=== PATIENT | female | born 1995 | race Caucasian/White ===

== ENCOUNTER 2019-11-30 20:04 | Inpatient (IN) | payer OTHER ==
[2019-11-30] MEDS ORDERED: SODIUM CHLORIDE 1,000 ML IV STA (20:19)
--- NOTE | 2019-11-30 20:24 | PDOC ---
Rapid Medical Evaluation Chief Complaint: Vaginal Bleeding Time Seen by Provider: 11/30/19 20:07 Medical Evaluation: 11/30/19 20:21 I performed a brief in-person evaluation of this patient. Pt is a 24 y/o female with vaginal bleeding in . She states she was told she is 9w gestation. Pt is . She states the bleeding started just prior to arrival. She is complaining of cramping in the abdomen. Pertinent physical exam findings: speaking in full sentences, nontoxic, no respiratory distress I have ordered the following: labs, transvaginal US, IV, 1L NS bolus Patient to proceed to ED for further evaluation. Discharge Disposition - Diagnosis Vaginal bleeding during - Referrals - Patient Instructions - Post Discharge Activity
[2019-11-30 21:02] LABS: BASO % 0.7 % (0-2.0); EOS % 2.7 % (0-4.5); HEMATOCRIT 35.8 % (32.4-45.2); LYMPH % 23.5 % (8-40); MCH 30.5 pg (25.7-33.7); MCHC 33.6 g/dl (32.0-36.0); MEAN CELL VOLUME 90.8 fl (80-96); MEAN PLT VOLUME 10.4 fl (7.5-11.1); MONO % 7.4 % (3.8-10.2); NEUT % 65.7 % (42.8-82.8); PLATELET COUNT 232 K/MM3 (134-434); RBC 3.94 M/mm3 (3.60-5.2); WHITE BLOOD COUNT 11.8 K/mm3 (4.0-10.0)
--- NOTE | 2019-11-30 21:18 | PDOC ---
History of Present Illness - General Chief Complaint: Vaginal Bleeding Stated Complaint: 9WKS - BLEEDING Time Seen by Provider: 11/30/19 20:07 Past History - Medical History Allergies/Adverse Reactions: Allergies Allergy/AdvReac Type Severity Reaction Status Date / Time No Known Allergies Allergy Verified 11/30/19 20:52 Home Medications: Ambulatory Orders NK [No Known Home Medication] 11/30/19 - Psycho-Social/Smoking History Smoking History: Never smoked - Substance Abuse Hx (Audit-C & DAST Scrn) How often the patient has a drink containing alcohol: Never Score: In Men: 4 or > Positive; In Women: 3 or > Positive: 0 Screen Result (Pos requires Nsg. Audit-10AR): Negative In the last yr the pt used illegal drug/Rx for NonMed reason: No Score: Yes response is considered Positive: 0 Screen Result (Positive result requires Nsg. DAST-10): Negative *Physical Exam - Vital Signs Last Vital Signs Temp Pulse Resp BP Pulse Ox 98.3 F 94 H 17 113/70 99 11/30/19 20:19 11/30/19 20:19 11/30/19 20:19 11/30/19 20:19 11/30/19 20:19 ED Treatment Course - LABORATORY CBC & Chemistry Diagram: 11/30/19 20:51 11/30/19 20:51 - ADDITIONAL ORDERS Additional order review: 11/30/19 20:51 RBC 3.94 MCV 90.8 MCHC 33.6 RDW 13.0 MPV 10.4 Neutrophils % 65.7 Lymphocytes % 23.5 Monocytes % 7.4 Eosinophils % 2.7 Basophils % 0.7 Medical Decision Making - Medical Decision Making 11/30/19 21:12 HPI: 24yo F no PMH 9 weeks by US presents from home c/o vaginal bleeding and abdominal pain since 1700 this PM. 1700 started light vaginal bleeding without clots or tissue, then 1800 began L-sided lower abdominal intermittent cramping and suprapubic burning type pain worse with urination. Endorses nausea and 2x emesis this PM, c/w "morning sickness". Denies vaginal discharge, trauma, complications, lightheadedness, syncope, headache, chest pain, SOB, back pain, flank pain, urinary urgency/frequency, numbness/tingling, weakness, sick contacts, URI-like sx. 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 HENT: Negative for sore throat, rhinorrhea, congestion. Eyes: Negative for visual disturbance. Respiratory: Negative for shortness of breath, cough, and wheezing. Cardiovascular: Negative for chest pain, palpitations, and leg swelling. Gastrointestinal: Positive for abdominal pain, nausea, vomiting. Negative for blood in stool, constipation, diarrhea. Genitourinary: Positive for vaginal bleeding, dysuria. Negative for flank pain, and hematuria. Musculoskeletal: Negative for myalgias, back pain, and neck pain. Skin: Negative for rash. Neurological: Negative for light-headedness, dizziness, vertigo, syncope, weakness, numbness and headaches. Psychiatric/Behavioral: Negative for behavioral problems and confusion. PE: Gen: Alert, NAD, comfortable-appearing, tearing up HEENT: PERRL, EOMI, MMM, NCAT. No conjunctival pallor. Sclera are non-icteric. CV: Regular rate and rhythm. No murmurs, rubs, or gallops. PULM: No resp distress. CTAB, no wheezes, rales, or rhonchi. ABD: soft, NT/ND, no rebound tenderness or guarding, no CVA tenderness. PELVIC: External genitalia unremarkable. Moderate amount of blood pooling in vault. No discharge seen with speculum exam. Cervix visualized and is open with active slow bleeding and small <1cm clot without any tissue. Bimanual exam without cervical motion tenderness, adnexal tenderness, or any masses appreciated. BACK: No TTP of c/t/l-spine. No step-offs or deformities. MSK: No bony deformities. 2+ pulses in all extremities. NEURO: AAOx3. PERRL. No gross CN deficits. Strength and sensation grossly intact throughout. Normal gait. EXTREMITIES: No cyanosis. No clubbing. No edema. No calf tenderness. PSYCH: Normal mood and thought pattern. SKIN: Warm and dry. Normal capillary refill. No rashes. No jaundice. MDM: 24yo F no PMH 9 weeks by US presents from home with vaginal bleed ing and abdominal pain since 1700 this PM. Hemodynamically stable, afebrile, benign abdomen. Ddx: UTI, spontaneous , implantation bleeding, anembryonic , heterotopic , ectopic , molar pregnacy, round ligament pain, ovarian torsion, Rh sensitization, ovarian cyst/cyst rupture, metabolic derangement, anemia -CBC,CMP,HCG,T&S,Coags -IVF -Pain management -Dispo: pending workup and reassessment 11/30/19 22:37 TVUS reviewed: IUP w/estimated GA 7w6d. No FHR compatible with demse. Labs reviewed. UA c/w UTI -Keflex -Consulted Dr Alcazar: will call back 11/30/19 22:[address] Alcazar. Admitted under Dr Alcazar for suction D&C tomorrow. Discharge - Discharge Information Problems reviewed: Yes Clinical Impression/Diagnosis: Vaginal bleeding during , Missed with demise before 20 completed weeks of gestation, UTI (urinary tract infection) Condition: Stable - Admission Yes - Follow up/Referral - Patient Discharge Instructions - Post Discharge Activity
[2019-11-30 21:58] LABS: BILIRUBIN,TOTAL 0.2 mg/dL (0.2-1); BLOOD UREA NITROGEN 7.6 mg/dL (7-18); CALCIUM 9.2 mg/dL (8.5-10.1); CREATININE 0.6 mg/dL (0.55-1.3); TOT PROT 7.3 g/dl (6.4-8.2)
[2019-11-30 22:00] LABS: EPI CELLS 24 /uL (0-25.1); HYALINE CASTS 0 /uL (0-3.1); URINE APPEARANCE CLOUDY; URINE BACTERIA 346 /uL (0-1359); URINE BILIRUBIN NEGATIVE (NEGATIVE); URINE COLOR YELLOW; URINE GLUCOSE (UA) NEGATIVE (NEGATIVE); URINE KETONE NEGATIVE (NEGATIVE); URINE LEUK ESTERASE 1+ (NEGATIVE); URINE NITRITE NEGATIVE (NEGATIVE); URINE PROTEIN NEGATIVE (NEGATIVE); URINE RBC 12 /uL (0-23.9); URINE UROBILINOGEN 0.2 mg/dL (0.2-1.0); URINE WBC 20 /uL (0-25.8)
[2019-11-30] MEDS ORDERED: CEPHALEXIN MONOHYDRATE 500 MG CAPSULE (UD) PO ONE (22:24)
[2019-11-30] MEDS ORDERED: CEPHALEXIN MONOHYDRATE 500 MG CAPSULE (UD) ONE (22:32)
[2019-11-30 22:35] LABS: INR 0.95 (0.83-1.09); PROTHROMBIN TIME (PATIENT) 11.2 SEC (9.7-13.0)
[2019-11-30 22:37] LABS: ACTIVATED PTT 30.3 SECONDS (25.2-36.5)
[2019-11-30] MEDS ORDERED: SODIUM CHLORIDE 0.9% 500 ML INFUS.BAG IV ONE (23:01)
[2019-11-30] MEDS ORDERED: SODIUM CHLORIDE 1,000 ML IV SCH (23:15)
[2019-11-30] MEDS ORDERED: ACETAMINOPHEN 1000 MG/100 ML VIAL (NON FORMULARY) IVPB ONE (23:33)
[2019-11-30] MEDS ORDERED: ACETAMINOPHEN INJECTION 100 ML IVPB ONE (23:38)
--- NOTE | 2019-11-30 23:50 | PDOC ---
Documentation entered by Joan Matute SCRIBE, acting as scribe for Rosita Pandya MD. Rosita Pandya MD: This documentation has been prepared by the Juju gagnon Adrianna, SCRIBE, under my direction and personally reviewed by me in its entirety. I confirm that the documentation accurately reflects all work, treatment, procedures, and medical decision making performed by me. Attending Attestation - Resident Resident Name: Pat Francois - ED Attending Attestation I have performed the following: I have examined & evaluated the patient, The case was reviewed & discussed with the resident, I agree w/resident's findings & plan, Exceptions are as noted - HPI HPI: 24 y.o female, ~9 weeks gestation by US with no PMH, presents with vaginal bleeding for a few hours. Patient complains of light vaginal bleeding, with LLQ abdominal cramping and suprapubic burning with urination. She endorses associated nausea and 1 episodes of NBNB vomit. Denies vaginal discharge, complications with , or any other complaints. denies any prior h/o ectopic. has had two us this . follows with dr Alcazar. blood type A positive. 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 Alcazar 11/30/19 23:46 - Physicial Exam PE: 11/30/19 23:48 awake alert lungs clear bilat heart rrr no mrg abd soft mild suprapubic ttp. nd ext wwp. exam performed by DR Francois. skin warm and dry. - Medical Decision Making 11/30/19 23:49 24 yo at 9 weeks by dates, with vaginal bleeding. diff threatened, missed or incomlete ab. plan us, labs bhcg. ivf given. us with missed ab 7 week sized fetus, no FHR paged dr Alcazar, plan for D & C in am. pt npo, started on maintenance fluids. ekg NSR 82 bpm. Discharge - Discharge Information Problems reviewed: Yes Clinical Impression/Diagnosis: Vaginal bleeding during , Missed with demise before 20 completed weeks of gestation Condition: Stable - Follow up/Referral - Patient Discharge Instructions - Post Discharge Activity
[2019-12-01 02:53] VITALS: BMI 25.9
[2019-12-01] MEDS ORDERED: MIDAZOLAM HCL 2 MG/2 ML SINGLE DOSE VIAL ONE ×2 (08:24)
[2019-12-01] MEDS ORDERED: PROPOFOL 20 ML ONE (08:24)
[2019-12-01] MEDS ORDERED: KETOROLAC TROMETHAMINE 30 MG/1 ML VIAL ONE (09:27)
[2019-12-01] MEDS ORDERED: ONDANSETRON 4 MG/2 ML VIAL IVPUSH PRN (09:48)
--- NOTE | 2019-12-01 09:48 | OP ---
Operative Note - Note: Operative Date: 12/01/19 Pre-Operative Diagnosis: Missed Operation: Suction D&C Findings: Product of conception Post-Operative Diagnosis: Same as Pre-op Surgeon: Rakel Alcazar Anesthesia: General Specimens Removed: Product of conception Estimated Blood Loss (mls): 10
[2019-12-01] MEDS ORDERED: LACTATED RINGERS SOLUTION 1,000 ML IV SCH (10:00)
--- NOTE | 2019-12-01 10:16 | HP ---
Admitting History and Physical - Admission Chief Complaint: Vaginal spotting in History of Present Illness: 24 yo , presents c/o vaginal spotting in associated with abdominal cramps. She had a sonogram done that shows evidence of an intrauterine with absent heart rate. A suction D&C was scheduled. History Source: Patient Limitations to Obtaining History: No Limitations - Past Medical History ...: Yes ...: 1 ...Para: 0 - Past Surgical History Past Surgical History: Yes: None - Smoking History Smoking history: Never smoked - Alcohol/Substance Use Hx Alcohol Use: No History of Substance Use: reports: None - Social History Usual Living Arrangement: Yes: With Significant Other History of Recent Travel: No Home Medications - Allergies Allergies/Adverse Reactions: Allergies Allergy/AdvReac Type Severity Reaction Status Date / Time No Known Allergies Allergy Verified 11/30/19 20:52 - Home Medications Home Medications: Ambulatory Orders NK [No Known Home Medication] 11/30/19 Family Medical History Family History: Unremarkable Review of Systems - Review of Systems Constitutional: denies: Fever Eyes: reports: No Symptoms HENT: reports: No Symptoms Neck: reports: No Symptoms Cardiovascular: reports: No Symptoms Respiratory: reports: No Symptoms Gastrointestinal: reports: No Symptoms Genitourinary: reports: Pain, Vaginal Bleeding Breasts: reports: No Symptoms Reported Musculoskeletal: reports: No Symptoms Integumentary: reports: No Symptoms Neurological: reports: No Symptoms Psychiatric: reports: No Symptoms Pain Intensity: 4 Physical Examination Vital Signs: Vital Signs Temperature 98.6 F 12/01/19 04:00 Pulse Rate 80 12/01/19 04:00 Respiratory Rate 20 12/01/19 04:00 Blood Pressure 109/52 L 12/01/19 04:00 O2 Sat by Pulse Oximetry (%) 100 12/01/19 02:53 Constitutional: No: No Distress Eyes: Yes: Conjunctiva Clear HENT: Yes: Atraumatic Neck: Yes: Supple Cardiovascular: Yes: Regular Rate and Rhythm Respiratory: Yes: Regular Gastrointestinal: Yes: Normal Bowel Sounds Musculoskeletal: Yes: WNL Extremities: Yes: WNL Neurological: Yes: Alert, Oriented ...Motor Strength: WNL Psychiatric: Yes: Alert, Oriented Labs: CBC, BMP 11/30/19 20:51 11/30/19 20:51 Assessment/Plan Missed Pre op for suction D&C
--- NOTE | 2019-12-01 10:23 | DS ---
Physical Examination Vital Signs: Vital Signs Temperature 98.0 F 12/01/19 09:45 Pulse Rate 60 12/01/19 10:00 Respiratory Rate 16 12/01/19 10:00 Blood Pressure 98/55 L 12/01/19 10:00 O2 Sat by Pulse Oximetry (%) 96 12/01/19 10:00 Constitutional: Yes: Calm Eyes: Yes: Conjunctiva Clear HENT: Yes: Atraumatic Neck: Yes: Supple Cardiovascular: Yes: Regular Rate and Rhythm Respiratory: Yes: Regular Gastrointestinal: Yes: Normal Bowel Sounds Musculoskeletal: Yes: WNL Extremities: Yes: WNL Neurological: Yes: Alert, Oriented ...Motor Strength: WNL Psychiatric: Yes: Alert, Oriented Labs: CBC, BMP 11/30/19 20:51 11/30/19 20:51 Discharge Summary Problems reviewed: Yes Reason For Visit: VAGINAL BLEEDING DURING PREG. MISSED Current Active Problems Missed with demise before 20 completed weeks of gestation (Acute) Vaginal bleeding during (Acute) Procedures: Principal: Suction D&C Hospital Course: Routine post op care Health Concerns: None Plan of Treatment: F/U with MD in 2 weeks Goals: Resume regular activities in 2 weeks Condition: Good - Instructions Diet, Activity, Other Instructions: Regular diet No douching, no sexual intercourse x 2 weeks F/U with MD in 2 weeks Disposition: HOME - Home Medications Comprehensive Discharge Medication List: Ambulatory Orders NK [No Known Home Medication] 11/30/19
[2019-12-01] MEDS ORDERED: ACETAMINOPHEN 325 MG TABLET (FP) PO PRN (13:59)
[2019-12-01] MEDS ORDERED: IBUPROFEN 600 MG TABLET (FP) PO PRN (14:00)
--- NOTE | 2019-12-01 14:53 | EKG ---
Test Reason : Blood Pressure : / mmHG Vent. Rate : 082 BPM Atrial Rate : 082 BPM P-R Int : 154 ms QRS Dur : 084 ms QT Int : 386 ms P-R-T Axes : 038 -01 020 degrees QTc Int : 450 ms NORMAL SINUS RHYTHM NONSPECIFIC T WAVE ABNORMALITY NO PREVIOUS ECGS AVAILABLE Confirmed by DUSTY DONNELLY MD ([id number]) on 12/01/2019 2:52:51 PM Referred By: Confirmed By:DUSTY DONNELLY MD
[2019-12-01 15:52] VITALS: BP 98/60; PULSE 88; TEMP 98.7
--- NOTE | 2019-12-03 02:08 | OP ---
DATE OF OPERATION: 11/30/2019 PREOPERATIVE DIAGNOSIS: Missed . POSTOPERATIVE DIAGNOSIS: Missed . PROCEDURE: Suction dilation and curettage. SURGEON: Rakel Alcazar MD ANESTHESIA: General. COMPLICATIONS: None. ESTIMATED BLOOD LOSS: 10 mL. DESCRIPTION OF PROCEDURE: Patient was taken to the operating room where general anesthesia was administered. Patient was then placed in lithotomy position. She was then prepped and draped in the proper sterile fashion. A weighted speculum was placed in the vagina. Anterior lip of the cervix was grasped with a single-toothed tenaculum. The cervix was then sequentially dilated with Massey dilators. An 8-mm suction curette was then gently introduced into the uterine cavity. The suction device was then activated and the curette was then rotated to clear the uterus of all products of conception. Sharp curettage was then performed and the suction curette was then reintroduced to clear the uterus of all remaining products of conception. When finished, the instruments were removed. The patient was taken out of lithotomy position. She was taken to the PACU in stable condition. PATHOLOGY: Products of conception. Luis [id number]
--- NOTE | 2019-12-04 17:21 | PATH ---
Surgical Pathology Report Patient Name: CRISTY CARRINGTON [facility]. Rec. #: [id number] /Age/Gender: 1995 (Age: 24) / F Account: [id number] Location: EMERGENCY ROOM Taken: 12/01/2019 Received: 12/01/2019 Reported: 12/04/2019 Physicians: Rakel Alcazar M.D. Specimen(s) Received UTERINE CONTENTS CURRETTINGS Clinical History Missed Final Diagnosis UTERINE CONTENTS/CURETTINGS: CHORIONIC VILLI PRESENT, CONSISTENT WITH PRODUCTS OF CONCEPTION. Electronically Signed Melania Hdz M.D. Gross Description Received in formalin labeled "uterine contents/curettings," is a 7.5 x 7.0 x 1.0 cm aggregate of lowry-red portions of soft tissue. Villous tissue is identified. No somatic tissue is identified. A rental sales representative portion is submitted in one cassette. /12/01/2019 saudi/12/01/2019
== END 2019-12-01 16:04 | disposition home or self-care (01) | DRG 544 ==
LOC: JER 20:04 → JERBED 22:45 → J6WEST-2 12-01 02:38
PROVIDERS: ADMIT Obstetrics & Gynecology; ATTEND Obstetrics & Gynecology
PROC: 10D17ZZ Extraction of Products of Conception, Retained, Via Natural or Artificial Opening (ICD-10-PCS; principal; 2019-11-30)
DX: O02.1 Missed abortion (principal)
CPT/HCPCS: 36415; 76817-TC; 80053; 81003; 84702; 85025; 85610; 85730; 86850; 86900; 86901; 87086; 88305-TC; 93005; 93010; 94760; 99285-25; J0131; U0003

== ENCOUNTER 2020-02-11 10:25 | Emergency (ER) | payer OTHER ==
[2020-02-11 10:31] VITALS: BP 113/72; PULSE 84; TEMP 97.8; BMI 27.4
[2020-02-11 11:23] LABS: BASO % 0.5 % (0-2.0); EOS % 2.1 % (0-4.5); HEMATOCRIT 38.6 % (32.4-45.2); LYMPH % 18.3 % (8-40); MCH 30.8 pg (25.7-33.7); MCHC 33.8 g/dl (32.0-36.0); MEAN CELL VOLUME 91.1 fl (80-96); MEAN PLT VOLUME 10.3 fl (7.5-11.1); NEUT % 74.1 % (42.8-82.8); PLATELET COUNT 261 K/MM3 (134-434); RBC 4.23 M/mm3 (3.60-5.2); RDW 12.5 % (11.6-15.6); WHITE BLOOD COUNT 10.7 K/mm3 (4.0-10.0)
--- NOTE | 2020-02-11 11:29 | PDOC ---
History of Present Illness - General Chief Complaint: Vaginal Bleeding Stated Complaint: PRGT VOMITING/UTI Time Seen by Provider: 02/11/20 10:41 History Source: Patient, Old Records Exam Limitations: No Limitations - History of Present Illness Travel History: No Initial Comments: 02/11/20 11:27 HISTORY OF PRESENT ILLNESS: 24-year-old woman 2 para 0 who presents emergency department for evaluation of vaginal bleeding with a positive home test. Patient reports she had a miscarriage in November of this year and has not had her menses since then. She reports she had a positive home test last week was concerned that she has vaginal bleeding given that she had a miscarriage 3 months ago. She denies any abdominal pain or back pain. She denies dysuria or vaginal discharge other than the blood. No recent travel or sick contacts. PAST MEDICAL HISTORY: Denies past medical history SURGICAL HISTORY: Denies ALLERGIES: No known drug allergies REVIEW OF SYSTEMS General/Constitutional: Denies fever or chills. Denies weakness, weight change. HEENT: Denies change in vision. Denies ear pain or discharge. Denies sore throat. Cardiovascular: Denies chest pain or shortness of breath. Respiratory: Denies cough, wheezing, or hemoptysis. Gastrointestinal: Denies nausea, vomiting, diarrhea or constipation. Denies rectal bleeding. Genitourinary: See HPI Musculoskeletal: Denies joint or muscle swelling or pain. Denies neck or back pain. Skin and breasts: Denies rash or easy bruising. Neurologic: Denies headache, vertigo, loss of consciousness, or loss of sensation. Psychiatric: Denies depression or anxiety. Endocrine: Denies increased thirst. Denies abnormal weight change. Hematologic/Lymphatic: Denies anemia, easy bleeding, or history of blood clots. Allergic/Immunologic: Denies hives or skin allergy. Denies latex allergy. PHYSICAL EXAM General Appearance: Well-appearing, appropriately dressed. No apparent distres s, no intoxication. Gastrointestinal/Abdominal: Normal bowel sounds. Abdomen soft, non-distended. N o tenderness or rebound tenderness. No organomegaly, pulsatile mass, guarding, hernia, hepatomegaly, splenomegaly. 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 Past History - Medical History Allergies/Adverse Reactions: Allergies Allergy/AdvReac Type Severity Reaction Status Date / Time No Known Allergies Allergy Verified 02/11/20 10:31 Home Medications: Ambulatory Orders Oxycodone HCl/Acetaminophen [Percocet 5-325 mg Tablet] 1 tab PO Q4H #20 tablet MDD 20 12/01/19 Ibuprofen [Motrin -] 600 mg PO Q4H PRN 14 Days #60 tablet 12/04/19 COPD: No - Reproductive History Is Patient Now?: Yes Therapeutic (s) & number: No - Immunization History Immunization Up to Date: Yes - Psycho-Social/Smoking History Smoking History: Never smoked Have you smoked in the past 12 months: No Information on smoking cessation initiated: No - Substance Abuse Hx (Audit-C & DAST Scrn) How often the patient has a drink containing alcohol: Never Score: In Men: 4 or > Positive; In Women: 3 or > Positive: 0 Screen Result (Pos requires Nsg. Audit-10AR): Negative In the last yr the pt used illegal drug/Rx for NonMed reason: No Score: Yes response is considered Positive: 0 Screen Result (Positive result requires Nsg. DAST-10): Negative *Physical Exam - Vital Signs Last Vital Signs Temp Pulse Resp BP Pulse Ox 97.8 F 84 17 113/72 98 02/11/20 10:27 02/11/20 10:27 02/11/20 10:27 02/11/20 10:27 02/11/20 10:27 ED Treatment Course - LABORATORY CBC & Chemistry Diagram: 02/11/20 10:30 02/11/20 10:30 - ADDITIONAL ORDERS Additional order review: 02/11/20 10:30 RBC 4.23 MCV 91.1 MCHC 33.8 RDW 12.5 MPV 10.3 Neutrophils % 74.1 Lymphocytes % 18.3 D Monocytes % 5.0 Eosinophils % 2.1 Basophils % 0.5 - RADIOLOGY Radiology Studies Ordered: Category Date Time Status TRANSVAGINAL US PREG [US] Stat Ultrasound 02/11/20 10:43 Ordered Medical Decision Making - Medical Decision Making 02/11/20 11:29 A/P: 24-year-old woman with vaginal bleeding and positive home test Labs including beta hCG and type and screen Urinalysis, urine , urine culture Transvaginal ultrasound Reassess 02/11/20 12:47 Transvaginal ultrasound is read by Dr. Escalera: No intrauterine gestational sac is identified at this time. Heterogeneous echotexture of the endometrial measuring 1.3 cm in AP dimension that appears to be extending into the cervical canal without gross color Doppler flow suggestive of blood clots. Correlation with serial quantitative serum beta-hCG and close follow-up is needed to rule out retained products of conception. No adnexal masses identified. Patient with beta-hCG 3835. I will discharge the patient home to follow-up for repeat beta-hCG in 2 days. Strict return precautions have been provided. I discussed the physical exam findings, ancillary test results and final diagnoses with the patient. I answered all of the patient's questions. The patient was satisfied with the care received and felt comfortable with the discharge plan and treatment plan. The patient will call their primary care physician within 24 hours to arrange follow-up and will return to the Emergency Department with any new, persistent or worsening symptoms. Portions of this note have been documented using voice recognition software. As a result, errors may occur in the mds nurse process. Effort has been made to correct all grammatical and mds nurse error, but some may have been missed which may produce sporadic inaccurate mds nurse or nonsensical phrases. Discharge - Discharge Information Problems reviewed: Yes Clinical Impression/Diagnosis: Vaginal bleeding during Condition: Fair Disposition: HOME - Admission No - Follow up/Referral - Patient Discharge Instructions Patient Printed Discharge Instructions: DI for Miscarriage Additional Instructions: Return to the emergency department in 2 days for repeat blood work. Schedule an appointment with your ADULT PSYCHIATRIST for reevaluation in 1 week. Return to the emergency department immediately for fevers, chills, severe abdominal pain or vaginal discharge. Regrese al departamento de emergencias en 2 pink para repetir los anlisis de sa ngre. Programe andres chelly con dupont obstetra / gineclogo para andres reevaluacin en 1 semana. Regrese al departamento de emergencias de inmediato si tiene fiebre, escalofros, dolor abdominal intenso o flujo vaginal. Print Language: ECUADOREAN - Post Discharge Activity Work/Back to School Note: Back to Work
[2020-02-11 11:44] LABS: BLOOD UREA NITROGEN 12.7 mg/dL (7-18); CALCIUM 9.4 mg/dL (8.5-10.1); CREATININE 0.6 mg/dL (0.55-1.3)
[2020-02-11 11:58] LABS: EPI CELLS 20 /uL (0-25.1); HYALINE CASTS 1 /uL (0-3.1); PH,URINE 5.5 (5.0-8.0); URINE APPEARANCE CLEAR; URINE BACTERIA 779 /uL (0-1359); URINE BILIRUBIN NEGATIVE (NEGATIVE); URINE COLOR YELLOW; URINE GLUCOSE (UA) NEGATIVE (NEGATIVE); URINE KETONE NEGATIVE (NEGATIVE); URINE LEUK ESTERASE TRACE (NEGATIVE); URINE NITRITE NEGATIVE (NEGATIVE); URINE PROTEIN NEGATIVE (NEGATIVE); URINE RBC 1029 /uL (0-23.9); URINE UROBILINOGEN 0.2 mg/dL (0.2-1.0); URINE WBC 19 /uL (0-25.8)
== END 2020-02-11 12:52 | disposition home or self-care (01) ==
LOC: JER 10:25
DX: O26.851 Spotting complicating pregnancy, first trimester (principal)
CPT/HCPCS: 36415; 76817-TC; 80048; 81003; 84702; 85025; 86850; 86900; 86901; 87086; 99284-25

== ENCOUNTER 2021-02-15 08:20 | Inpatient (IN) | payer OTHER ==
[2021-02-15] MEDS ORDERED: DEXTROSE 5%-LACTATED RINGERS 1,000 ML IV SCH ×2 (09:00→16:34)
[2021-02-15 09:43] VITALS: BMI 34.7
[2021-02-15] MEDS: MISOPROSTOL 100 MCG TABLET PV SCH ×3 (11:40→18:02)
[2021-02-15] MEDS ORDERED: OXYTOCIN 30 UNITS in 0.9% NS 30 UNIT/500 ML INFUS.BAG IVPB ONE (15:35)
[2021-02-15] MEDS ORDERED: OXYTOCIN 30 UNITS in 0.9% NS 30 UNIT/500 ML INFUS.BAG IVPB SCH (16:45)
[2021-02-15] MEDS ORDERED: PROMETHAZINE HCL 25 MG/1 ML VIAL IVPB ONE (21:08)
[2021-02-15] MEDS ORDERED: BUTORPHANOL TARTRATE 1 MG/ML VIAL IVPB ONE (21:08)
[2021-02-15] MEDS ORDERED: PROMETHAZINE HCL 25 MG/1 ML VIAL ONE (21:43)
[2021-02-15] MEDS ORDERED: BUTORPHANOL TARTRATE 2 MG/ML VIAL ONE (21:43)
[2021-02-15] MEDS ORDERED: SODIUM CHLORIDE 1,000 ML IV STA (23:25)
[2021-02-15] MEDS ORDERED: PCA PUMP NR ONE (23:39)
[2021-02-15] MEDS ORDERED: FENTANYL/BUPIVACAINE/NS/PF - PCEA - 50 ML DISP.SYRIN EP ONE (23:40)
[2021-02-15] MEDS ORDERED: BUPIVACAINE HCL/PF 0.25% (2.5MG/ML) 10 ML VIAL ONE (23:41)
[2021-02-16] MEDS: FENTANYL/BUPIVACAINE/NS/PF - PCEA - 50 ML DISP.SYRIN EP SCH (00:05)
[2021-02-16] MEDS ORDERED: NALOXONE HCL 0.4 MG/ML VIAL IVPUSH PRN (00:12)
[2021-02-16] MEDS ORDERED: OXYTOCIN 20 UNITS in 0.9% NS 20 UNIT/1,000 ML INFUS.BAG IV ONE ×2 (00:28→10:15)
[2021-02-16] MEDS ORDERED: LIDOCAINE HCL 1% PRESERVATIVE FREE - 30ML VIAL ONE (01:29)
[2021-02-16] MEDS ORDERED: OXYTOCIN 20 UNITS in 0.9% NS 1000 ML INFUS.BAG IV ONE (03:31)
[2021-02-16] MEDS ORDERED: WITCH HAZEL 50% (TUCKS) 40 PAD/JAR PAD TP PRN (03:32)
[2021-02-16] MEDS ORDERED: BENZOCAINE 20% 57 GM BOTTLE TP PRN (03:32)
[2021-02-16] MEDS ORDERED: BENZOCAINE 28 GM HEMORRHOIDAL OINTMENT TP PRN (03:32)
[2021-02-16] MEDS ORDERED: ACETAMINOPHEN 325 MG TABLET (FP) PO PRN (03:32)
[2021-02-16] MEDS ORDERED: D5W-LR W/ 20 UNITS OXYTOCIN 20 UNIT/1,000 ML INFUS.BAG IV SCH (03:45)
[2021-02-16] MEDS: MISOPROSTOL 100 MCG TABLET PV SCH ×3 (05:26→10:19)
[2021-02-16 06:01] LABS: CORD BASE EXCESS -9.5 mmol/L (0-2); CORD PCO2 51.6 mmHg (30-78); CORD pH 7.183 (7.14-7.44)
[2021-02-16] MEDS ORDERED: LABETALOL HCL 5 MG/1 ML (100MG/20 ML VIAL) IVPUSH ONE (07:43)
[2021-02-16] MEDS: PRENATAL VITAMINS W/ FOLIC ACID TABLET (FP) PO SCH (10:50)
[2021-02-16] MEDS: IBUPROFEN 600 MG TABLET (FP) PO PRN (18:15)
[2021-02-17] MEDS: PRENATAL VITAMINS W/ FOLIC ACID TABLET (FP) PO SCH (09:35)
[2021-02-17 11:25] LABS: BASO % 0.3 % (0-2.0); EOS % 0.7 % (0-4.5); HEMATOCRIT 30.2 % (32.4-45.2); HEMOGLOBIN 10.3 GM/dL (10.7-15.3); LYMPH % 12.8 % (8-40); MCH 30.8 pg (25.7-33.7); MCHC 34.1 g/dl (32.0-36.0); MEAN CELL VOLUME 90.4 fl (80-96); MEAN PLT VOLUME 10.4 fl (7.5-11.1); MONO % 6.5 % (3.8-10.2); NEUT % 79.7 % (42.8-82.8); PLATELET COUNT 180 10^3/uL (134-434); RBC 3.34 M/mm3 (3.60-5.2); RDW 14.1 % (11.6-15.6); WHITE BLOOD COUNT 14.7 K/mm3 (4.0-10.0)
[2021-02-17] MEDS: IBUPROFEN 600 MG TABLET (FP) PO PRN (15:41)
[2021-02-17] MEDS ORDERED: SENNOSIDES/DOCUSATE COMBO (SENNA PLUS) TABLET (UD) PO PRN (22:00)
[2021-02-18] MEDS: IBUPROFEN 600 MG TABLET (FP) PO PRN (02:03)
[2021-02-18] MEDS: FENTANYL/BUPIVACAINE/NS/PF - PCEA - 50 ML DISP.SYRIN EP SCH (07:26)
[2021-02-18 09:12] VITALS: BP 92/62; PULSE 77; TEMP 97.6
[2021-02-18] MEDS ORDERED: DIPHTH,PERTUSS(ACELL),TET 0.5 ML DISP.SYRIN IM ONE (10:10)
[2021-02-18] MEDS: PRENATAL VITAMINS W/ FOLIC ACID TABLET (FP) PO SCH (10:11)
== END 2021-02-18 12:57 | disposition home or self-care (01) | DRG 542 ==
LOC: JLDR 08:20 → J3W 02-16 10:23
PROVIDERS: ADMIT Obstetrics & Gynecology Maternal & Fetal Medicine; ATTEND Obstetrics & Gynecology Maternal & Fetal Medicine
PROC: 10H003Z Insertion of Monitoring Electrode into Products of Conception, Open Approach (ICD-10-PCS; 2021-02-15)
PROC: 10H07YZ Insertion of Other Device into Products of Conception, Via Natural or Artificial Opening (ICD-10-PCS; 2021-02-15)
PROC: 3E0DXGC Introduction of Other Therapeutic Substance into Mouth and Pharynx, External Approach (ICD-10-PCS; 2021-02-15)
PROC: 10E0XZZ Delivery of Products of Conception, External Approach (ICD-10-PCS; principal; 2021-02-16)
PROC: 0KQM0ZZ Repair Perineum Muscle, Open Approach (ICD-10-PCS; 2021-02-16)
DX: O41.03X0 Oligohydramnios, third trimester, not applicable or unspecified (principal); O28.3 Abnormal ultrasonic finding on antenatal screening of mother; O70.1 Second degree perineal laceration during delivery; Z3A.39 39 weeks gestation of pregnancy; Z37.0 Single live birth
CPT/HCPCS: 36415; 36600; 59409; 80053; 82803; 85025; 85610; 85730; 86850; 86900; 86901; 88307-TC; 90715; C9803; U0003; U0005

== ENCOUNTER 2021-06-05 01:21 | Emergency (ER) | payer OTHER ==
[2021-06-05 02:05] VITALS: TEMP 97.7; BMI 27.8
[2021-06-05] MEDS ORDERED: ACETAMINOPHEN 1000 MG/100 ML BAG IVPB ONE (02:10)
[2021-06-05] MEDS ORDERED: LIDOCAINE 5% TOPICAL PATCH TP ONE (02:10)
[2021-06-05] MEDS ORDERED: LIDOCAINE 5% TOPICAL PATCH ONE (02:31)
[2021-06-05] MEDS ORDERED: ACETAMINOPHEN INJECTION 100 ML IVPB ONE (02:31)
[2021-06-05] MEDS ORDERED: SODIUM CHLORIDE 0.9% 500 ML INFUS.BAG IV ONE ×2 (02:42→03:05)
[2021-06-05] MEDS ORDERED: METHOCARBAMOL 500 MG TABLET PO ONE (03:04)
[2021-06-05] MEDS ORDERED: METHOCARBAMOL 500 MG TABLET ONE (03:05)
[2021-06-05 03:17] LABS: BASO % 0.5 % (0-2.0); EOS % 2.5 % (0-4.5); HEMATOCRIT 37.6 % (32.4-45.2); HEMOGLOBIN 12.7 GM/dL (10.7-15.3); MCH 29.4 pg (25.7-33.7); MCHC 33.7 g/dl (32.0-36.0); MEAN CELL VOLUME 87.4 fl (80-96); MEAN PLT VOLUME 10.3 fl (7.5-11.1); MONO % 8.3 % (3.8-10.2); NEUT % 59.7 % (42.8-82.8); PLATELET COUNT 259 10^3/uL (134-434); RBC 4.31 M/mm3 (3.60-5.2); RDW 13.8 % (11.6-15.6); WHITE BLOOD COUNT 11.3 K/mm3 (4.0-10.0)
[2021-06-05 03:36] LABS: CALCIUM 9.8 mg/dL (8.5-10.1)
[2021-06-05 03:37] LABS: BLOOD UREA NITROGEN 17.7 mg/dL (7-18)
[2021-06-05 03:40] LABS: CREATININE 0.6 mg/dL (0.55-1.3)
[2021-06-05 03:41] LABS: BILIRUBIN,TOTAL 0.3 mg/dL (0.2-1)
[2021-06-05 04:05] LABS: ALBUMIN 4.2 g/dl (3.4-5.0)
[2021-06-05 06:31] LABS: PH,URINE 5.5 (5.0-8.0); URINE APPEARANCE CLEAR; URINE BILIRUBIN NEGATIVE (NEGATIVE); URINE COLOR YELLOW; URINE GLUCOSE (UA) NEGATIVE (NEGATIVE); URINE KETONE NEGATIVE (NEGATIVE); URINE LEUK ESTERASE NEGATIVE (NEGATIVE); URINE NITRITE NEGATIVE (NEGATIVE); URINE PROTEIN NEGATIVE (NEGATIVE); URINE UROBILINOGEN 0.2 mg/dL (0.2-1.0)
[2021-06-05 06:58] VITALS: BP 84/51; PULSE 67
[2021-06-05] MEDS ORDERED: LIDOCAINE PATCH REMOVAL MC SCH (22:00)
== END 2021-06-05 06:58 | disposition home or self-care (01) ==
LOC: JER 01:21
PROC: 3E033GC Introduction of Other Therapeutic Substance into Peripheral Vein, Percutaneous Approach (ICD-10-PCS; principal; 2021-06-05)
DX: R10.9 Unspecified abdominal pain (principal)
CPT/HCPCS: 36415; 71045-TC-FY; 74177-TC; 80053; 81003; 84703; 85025; 87086; 87186; 99285-25; C9803; J0131; U0003; U0005